=== PATIENT | male | born 1970 | race Caucasian/White ===

== ENCOUNTER 2022-04-13 20:16 | Emergency (ER) | payer OTHER, BC, SELFPAY ==
[2022-04-13 20:19] VITALS: BP 172/102; PULSE 91; RESP 14; TEMP 36.3; O2SAT 95
--- NOTE | 2022-04-13 20:30 | DI.RAD_ITS ---
Exam(s) XR KNEE LT 3V AP,LAT,NANDA EXAM: XR KNEE LT 3V AP,LAT,NANDA CLINICAL HISTORY: pain s/p fall. TECHNIQUE: 2D digital imaging was performed of the left knee. Three images were obtained. AP, late ral and PA tunnel views were obtained. COMPARISON: No exams were available for comparison FINDINGS: BONES: No acute fracture is present. No bony destructive lesion is seen. JOINTS: The knee is normally aligned. No joint effusion is seen. SOFT TISSUE: Normal. IMPRESSION: No acute fracture or dislocation. DATA REPOSITORY: RADIATION DOSE DELIVERED:
--- NOTE | 2022-04-13 20:37 | ED.GENADUL_ITS ---
Discharge Plan Disposition Patient Disposition: HOME Condition: Stable Discharge Details Clinical Impression: Left knee sprain Primary Care Provider: Jered Newman ED Provider: Ac Palacios Home Meds and New Rx's Prescriptions: Continued multivitamin 1 EACH capsule 1 ea PO DAILY fluticasone propionate [Flonase] 16 GM spray,suspension 2 spry NS HS Qty: 3 Label Comments: pt states I haven't used that in a while 12/24/14 rl triamcinolone acetonide 15 GM cream 0 Topical BID Qty: 30 Rx Instructions: Apply cholecalciferol (vitamin D3) 5,000 UNIT tablet 5,000 unit PO DAILY varenicline [Chantix Starting Month Box] 1 EACH tablets,dose pack 1 ea PO BID Qty: 1 1RF lisinopril-hydrochlorothiazide 20-12.5 mg tablet 2 tab PO DAILY Qty: 180 4RF Tylenol Pm metformin 500 mg tablet 1 tab PO BID Discharge Instructions Instructions: Knee Sprain (ED) Additional Instructions: if pain continues in a week follow up with your primary care provider if you feel more ill, have new pain such as abdominal pain or severe worsening pain return to the emergency department Medical Decision Making 51 yo male slipped going down a hill and landed on buttock and twisted his left knee. Denies hitting head or loc and denies preceding symptoms states purely mechanical fall. Denies head pain, neck pain, chest pain, abdomen pain, back pain. He has pain only in the left. He has full rom of the left knee but states it hurts to do so. He has no swelling, is tender along the medial joint line. Normal distal sensation and pulses, is able to bear weight. Suspect sprain of the knee less likely fracutre or meniscus or ligamentous injury. Will obtain xrays and reassess. xray negative on my read, patient stable. Do not feel he needs to wait for vrad read will call if any abnormalities seen. Advised to f/u with pcp if pain continues in a week and return precautions given Differential Diagnosis Differential Diagnosis: sprain, strain, fracture Imaging Data Radiologic Study: Attestation: I personally reviewed and interpreted this imaging study as follows: Imaging: X-Ray My impression: no acute findings HPI General Mode of arrival: ambulatory . Date/Time Provider Initiated Documentation: 04/13/22 20:29 . Limitations to Documentation: no limitations . Information obtained by: patient . History of Present Illness 51 year old M presents to the emergency department with the chief complaint of left knee pain, described as moderate, Patient started experiencing this hour(s) (1) and it has been constant. Rest improves symptom(s), Movement worsens symptoms . Patient notes no other symptoms.. Related Data Home Medications Medication Instructions Recorded Confirmed fluticasone propionate 50 2 spry NS HS #3 ea 10/20/13 12/24/14 mcg/actuation nasal spray,suspension (Flonase) multivitamin 1 ea PO DAILY 10/20/13 12/24/14 Tylenol Pm 12/24/14 12/24/14 triamcinolone acetonide 0.1 % 0 topical BID #30 grams 10/18/15 topical cream cholecalciferol (vitamin D3) 125 5,000 unit PO DAILY 03/27/18 mcg (5,000 unit) tablet varenicline 0.5 mg (11)-1 mg (42) 1 ea PO BID #1 tab-cap 03/27/18 tablets in a dose pack (Chantix Starting Month Box) lisinopril 20 2 tab PO DAILY #180 tabs 08/26/18 04/13/22 mg-hydrochlorothiazide 12.5 mg tablet metformin 500 mg tablet 1 tab PO BID 04/13/22 04/13/22 Previous Rx's Medication Instructions Recorded varenicline 0.5 mg (11)-1 mg (42) 1 ea PO BID #1 tab-cap 03/27/18 tablets in a dose pack (Chantix Starting Month Box) lisinopril 20 2 tab PO DAILY #180 tabs 08/26/18 mg-hydrochlorothiazide 12.5 mg tablet Allergies Allergy/AdvReac Type Severity Reaction Status Date / Time shellfish derived Allergy Severe Anaphylaxsi Unverified 04/13/22 20:27 s General Stated Complaint: Orthopedic JOES: 4 Review of Systems All systems reviewed & are unremarkable except as noted in HPI and below Constitutional Constitutional: Denies chills, Denies fever(s) and Denies weakness Cardiovascular Cardiovascular: Denies chest pain and Denies dyspnea Respiratory Respiratory: Denies cough and Denies dyspnea Gastrointestinal Gastrointestinal: Denies abdominal pain, Denies nausea and Denies vomiting Musculoskeletal Musculoskeletal: Denies joint swelling Neurologic Neurologic: Denies weakness PFSH All Active Problems (Updated 04/13/22 @ 20:41 by Ac Palacios MD) Tobacco chew use (Acute 09/04/17) Sleep disorder (Acute 06/15/14) 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 Essential hypertension (Acute) Asthma (Acute 06/15/14) Left knee sprain (Acute) Medical History (Updated 04/13/22 @ 20:41 by Ac Palacios MD) Diabetes Hypertension Family History Mother Heart disease Sister Neoplasm Grandfather No problems noted. Grandfather Diabetes Neoplasm Grandmother Heart disease Grandmother Heart disease Social History Smoking/Tobacco Use Status: Never Smoking risk assessment performed?: Yes Alcohol Intake: current Alcohol Intake frequency: holidays/special occasions only Drug use: Never Substance use type: does not use Do you feel safe at home: No Do you feel safe in your relationship?: No Exam Const General: no acute distress Orientation: alert HENMT Head: normal to inspection Ears: external ears normal General nose exam: external nose normal Mouth: moist mucous membranes Eyes General: appearance normal, both eyes and all related structures Neck Neck: normal visual inspection Resp Effort & Inspection: normal respiratory effort and able to speak in complete sentences Cardio Rate: regular rate Skin General skin exam: no rashes or lesions noted Neuro General: patient alert and patient oriented x3 Extrem General: normal to inspection, full ROM and capillary refill normal Psych Mental Status: mental status grossly normal Course Vital Signs Vital signs: Vital Signs Temperature 36.3 C L 04/13/22 20:19 Pulse 91 H 04/13/22 20:19 Respiratory Rate 14 04/13/22 20:19 Blood Pressure 172/102 H 04/13/22 20:19 Pulse Oximetry 95 04/13/22 20:19 Temperature 36.3 C L 04/13/22 20:19 Temperature Source Temporal Artery Scan 04/13/22 20:19 Pulse 91 H 04/13/22 20:19 Respiratory Rate 14 04/13/22 20:19 Respiratory Effort Non-Labored 04/13/22 20:24 Blood Pressure 172/102 H 04/13/22 20:19 Pulse Oximetry 95 04/13/22 20:19 Pain Level 6 04/13/22 20:24
[2022-04-13] MEDS: Ibuprofen 600 MG TAB PO (20:58)
--- NOTE | 2022-04-13 21:50 | DI.VRAD_ITS ---
PROCEDURE INFORMATION: Exam: XR Left Knee Exam date and time: 04/13/2022 8:47 PM Age: 51 years old Clinical indication: Injury or trauma; Sprain or strain; Patella or knee; Left; Injury date: 04/13/22; Injury details: Fall, knee pain TECHNIQUE: Imaging protocol: Radiologic exam of the Left knee. Views: 3 views. COMPARISON: No relevant prior studies available. FINDINGS: Bones/joints: Possible osteochondral fragments present at the intercondylar notch versus small osteophyte. No other evidence of fracture. No evidence of dislocation. Soft tissues: There is soft tissue swelling and probable small joint effusion present the suprapatellar and femoral tibial joint. IMPRESSION: 1. Possible osteochondral fragments present at the intercondylar notch versus small osteophyte. 2. There is soft tissue swelling and probable small joint effusion present the suprapatellar and femoral tibial joint. Dictated and Authenticated by: Benson Moody MD. Ordering:DREW Shen MD
== END 2022-04-13 21:33 | disposition home or self-care (01) ==
PROVIDERS: Emergency Provider Emergency Medicine; PCP Family Medicine
DX: S83.8X2A Sprain of other specified parts of left knee, initial encounter (principal); X50.1XXA Overexertion from prolonged static or awkward postures, initial encounter
CPT/HCPCS: 29505; 73562; 99283

== ENCOUNTER 2023-11-05 19:25 | Outpatient (REF) | payer BC, SELFPAY | END 2023-11-05 19:26 | disposition home or self-care (01) | LOC: NCHCN 19:25 | PROVIDERS: PCP Family Medicine; Visit Provider Physician Assistant | DX: J02.9 Acute pharyngitis, unspecified (principal) | CPT/HCPCS: 87070 ==